=== PATIENT | male | born 2000 | race Caucasian/White ===

== ENCOUNTER 2018-09-07 15:53 | Emergency (ER) | payer OTHER ==
[2018-09-07] MEDS ORDERED: Lidocaine 1% 20 ML MDV INFILT ONE (15:54)
[2018-09-07] MEDS ORDERED: Diphtheria,Pertussis(Acell),Tetanus Vaccine 0.5 ML SDV IM ONE (16:03)
--- NOTE | 2018-09-07 16:42 | EDM.PDOC ---
ED HPI GENERAL MEDICAL PROBLEM - General Chief Complaint: Laceration Stated Complaint: CUT FINGER ON RIGHT HAND Time Seen by Provider: 09/07/18 16:05 Source of Information: Reports: Patient History Limitations: Reports: No Limitations - History of Present Illness INITIAL COMMENTS - FREE TEXT/NARRATIVE: 18-year-old male who was loading and 150 pound grill into somebody's car at the hardware store and the grill slipped and he got his right fifth finger tip caught on the edge of the grill causing a laceration. This occurred approximately 3:40 PM today. He reports there is sore pain in the area that he rates as a 2/10. It is worse with palpation. The bleeding has been controlled with direct pressure. No other injuries. There are no other associated signs or symptoms. There are no other modifying factors. 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 No chronic medical problems.) Social & Family History - Tobacco Use Smoking Status *Q: Current Some Day Smoker - Caffeine Use Caffeine Use: Reports: Energy Drinks, Soda - Alcohol Use Alcohol Use History: Yes Alcohol Use Frequency: Weekly - Recreational Drug Use Recreational Drug Use: No - Living Situation & Occupation Living situation: Reports: Single Occupation: Employed (Works at [employer].) Social History Comment: He's here with his mother. ED ROS GENERAL - Review of Systems Review Of Systems: See Below Constitutional: Reports: No Symptoms HEENT: Reports: No Symptoms Respiratory: Reports: No Symptoms Cardiovascular: Reports: No Symptoms GI/Abdominal: Reports: No Symptoms : Reports: No Symptoms Musculoskeletal: Reports: Other ([id number]. Full function in his right hand with full flexion and extension in his right fifth finger. No bony abnormality.) Skin: Reports: Bruising (Bruising to right fifth fingertip), Other (Laceration to right fifth fingertip) Neurological: Reports: No Symptoms Hematologic/Lymphatic: Reports: No Symptoms Immunologic: Reports: No Symptoms ED EXAM, SKIN/RASH Exam: See Below Exam Limited By: No Limitations General Appearance: Alert, WD/WN, No Apparent Distress Eye Exam: Bilateral Eye: Normal Inspection Ears: Normal External Exam, Hearing Grossly Normal Nose: Normal Inspection, Normal Mucosa, No Blood Throat/Mouth: Normal Inspection, Normal Oropharynx, Normal Voice, No Airway Compromise Head: Atraumatic, Normocephalic Neck: Normal Inspection, Supple, Non-Tender, Full Range of Motion Respiratory/Chest: No Respiratory Distress, Lungs Clear, Normal Breath Sounds, No Accessory Muscle Use Cardiovascular: Normal Peripheral Pulses, Regular Rate, Rhythm, No JVD Peripheral Pulses: 2+: Radial (L), Radial (R) GI/Abdominal: Normal Bowel Sounds, Soft, Non-Tender Back Exam: Normal Inspection Extremities: Normal Range of Motion, Normal Capillary Refill, Other (Laceration to right fifth fingertip) Neurological: Alert, Oriented, CN II-XII Intact, Normal Cognition, No Motor/ Sensory Deficits Skin: Warm, Dry, Normal Color, No Rash Location, Skin: Upper Extremity, Right (Right fifth fingertip) Characteristics: Linear (Down to subcutaneous tissue) ED SKIN PROCEDURES - Laceration/Wound Repair Right Digit - 5th (Baby) Appearance: Subcutaneous Distal NVT: Neuro & Vascular Intact, No Tendon Injury Anesthetic Type: Local Local Anesthesia - Lidocaine (Xylocaine): 1% Plain Local Anesthetic Volume: 3cc (Good anesthesia with no complications.) Saline Irrigation (cc's): 500 Exploration/Debridement/Repair: Wound Explored Closed with: Sutures Suture Size: 4-0 # of Sutures: 7 (Patient tolerated suturing well with no apparent complications. ) Suture Type: Prolene Course - Vital Signs Last Recorded V/S: Last Vital Signs Temp 36.7 C 09/07/18 15:55 Pulse 85 09/07/18 15:55 Resp 16 09/07/18 15:55 BP 148/86 H 09/07/18 15:55 Pulse Ox 97 09/07/18 15:55 - Orders/Labs/Meds Orders: Active Orders 24 hr Category Date Time Status Vaccines to be Administered [RC] PER UNIT ROUTINE Care 09/07/18 16:03 Active Meds: Medications Discontinued Medications Generic Name Dose Route Start Last Admin Trade Name Wei PRN Reason Stop Dose Admin Diphtheria/Tetanus/Acell Pertussis 0.5 ml 09/07/18 16:03 Adacel IM 09/07/18 16:04 .ONCE ONE Departure - Departure Time of Disposition: 16:45 Disposition: Home, Self-Care 01 Condition: Good Clinical Impression: Laceration of finger of right hand Qualifiers: Encounter type: initial encounter Finger: little finger Damage to nail status: without damage Foreign body presence: without foreign body Qualified Code(s): S61.216A - Laceration without foreign body of right little finger without damage to nail, initial encounter Contusion of finger, right Qualifiers: Encounter type: initial encounter Finger: little finger Damage to nail status: without damage Qualified Code(s): S60.051A - Contusion of right little finger without damage to nail, initial encounter - Discharge Information Instructions: Sutured Wound Care, Contusion Referrals: Marvin Rodriguez MD [Primary Care Provider] - Additional Instructions: Do not get the wound wet for 3 days. After 3 days, you may get the wound wet but do not immerse the wound in water until the sutures are out. Suture removal in 10 days. Avoid strenuous use with your right hand for the next 2 weeks. Back to the emergency department for marked increase in pain, redness, increased swelling, fever or any other concerning sign or symptom. You were given a Tdap Immunization today to bring your tetanus immunization status up-to-date. - My Orders Last 24 Hours: My Active Orders 09/07/18 16:03 Vaccines to be Administered [RC] PER UNIT ROUTINE - Assessment/Plan Last 24 Hours: My Active Orders 09/07/18 16:03 Vaccines to be Administered [RC] PER UNIT ROUTINE
== END 2018-09-07 17:01 | disposition home or self-care (01) ==
LOC: FB.ED 15:53
DX: S61.216A Laceration without foreign body of right little finger without damage to nail, initial encounter (principal); F17.200 Nicotine dependence, unspecified, uncomplicated; Z23 Encounter for immunization; W20.8XXA Other cause of strike by thrown, projected or falling object, initial encounter
CPT/HCPCS: 12002; 90471; 90715; 99282; J2001